=== PATIENT | female | born 1950 | race Native Hawaiian/Other Pacific Islander ===

== ENCOUNTER 2016-10-11 16:43 | Emergency (ER) | payer OTHER, BC ==
[~2016-10-11] VITALS: Ht 170.2 cm; Wt 114.8 kg
[2016-10-11] MEDS ORDERED: ELIQUIS2.5 MG OR (17:46)
[2016-10-11] MEDS ORDERED: METFTAB PO (17:47)
[2016-10-11] MEDS ORDERED: CARV12.5 PO (17:47)
[2016-10-11] MEDS ORDERED: GLIM4TAB PO (17:47)
[2016-10-11] MEDS ORDERED: XANAX XR1 MG OR (17:48)
[2016-10-11] MEDS ORDERED: VERA180T12 PO (17:48)
[2016-10-11] MEDS ORDERED: XARELTO20 MG OR (17:48)
[2016-10-11 17:51] LABS: PLATELET COUNT 368 K/uL (152-353)
[2016-10-11 18:04] LABS: POTASSIUM 4.4 mmol/L (3.6-5.2)
[2016-10-11 19:33] VITALS: BP 146/90; TEMP 98.3
== END 2016-10-11 19:40 | disposition home or self-care (01) ==
LOC: ED 16:43
DX: E11.65 Type 2 diabetes mellitus with hyperglycemia (principal); I48.91 Unspecified atrial fibrillation; I10 Essential (primary) hypertension; E66.8 Other obesity
CPT/HCPCS: 36415; 80053; 80307; 81000; 82550; 83036; 84484; 85027; 93005; 96374; 96375; 96376; 99284; G0479; J1815; J3490

== ENCOUNTER 2016-10-15 19:40 | Outpatient (CLI) | payer OTHER, BC ==
[~2016-10-15 19:40] MED LIST: CARV12.5 PO; ELIQUIS2.5 MG OR; GLIM4TAB PO; METFTAB PO; VERA180T12 PO; XANAX XR1 MG OR; XARELTO20 MG OR
== END 2016-10-15 19:47 | disposition short-term general hospital (02) ==
LOC: AMB 19:40
DX: E11.65 Type 2 diabetes mellitus with hyperglycemia (principal); R53.81 Other malaise; R41.82 Altered mental status, unspecified
CPT/HCPCS: A0425; A0427

== ENCOUNTER 2016-10-15 19:50 | Inpatient (IN) | payer OTHER, BC ==
[~2016-10-15] VITALS: Ht 170.2 cm; Wt 108.6 kg
[2016-10-15 19:59] VITALS: BP 163/85; TEMP 97.7
[2016-10-15 20:55] LABS: PLATELET COUNT 342 K/uL (152-353)
[2016-10-15 21:23] LABS: POTASSIUM 2.8 mmol/L (3.6-5.2)
[2016-10-16] VITALS (11 sets, daily range): BP systolic 130–153; BP diastolic 60–102; TEMP 97.7–98; Ht 170.2 cm; Wt 108.6 kg
[2016-10-16 12:08] LABS: PLATELET COUNT 236 K/uL (152-353)
[2016-10-16 13:10] LABS: POTASSIUM 2.7 mmol/L (3.6-5.2)
[2016-10-16 18:30] LABS: POTASSIUM 2.7 mmol/L (3.6-5.2)
[2016-10-17] VITALS (20 sets, daily range): BP systolic 86–148; BP diastolic 55–96; TEMP 97.7–98.2
[2016-10-17 02:43] LABS: PLATELET COUNT 224 K/uL (152-353)
[2016-10-17 02:48] LABS: POTASSIUM 2.9 mmol/L (3.6-5.2)
[2016-10-17 20:12] LABS: POTASSIUM 3.5 mmol/L (3.6-5.2)
[2016-10-18] VITALS (14 sets, daily range): BP systolic 87–133; BP diastolic 51–88; TEMP 97.7–98.3
[2016-10-18 06:51] LABS: PLATELET COUNT 179 K/uL (152-353)
[2016-10-18 06:53] LABS: POTASSIUM 3.6 mmol/L (3.6-5.2)
[2016-10-18] MEDS ORDERED: DIGOX125 MCG PO (07:37)
[2016-10-19] VITALS: BP 100/66; TEMP 97.8
[2016-10-19 04:00] VITALS: BP 121/88; TEMP 97.8
[2016-10-19 06:35] LABS: POTASSIUM 3.2 mmol/L (3.6-5.2)
[2016-10-19 06:48] LABS: PLATELET COUNT 178 K/uL (152-353)
[2016-10-19 08:00] VITALS: BP 119/61; TEMP 97.6
[2016-10-19 13:00] VITALS: BP 120/78; TEMP 98.4
== END 2016-10-19 13:45 | disposition home or self-care (01) | DRG 638 ==
LOC: ED 19:50 → MED/SURG 23:34 → ICU 10-16 17:17
PROVIDERS: Emergency Medicine; Internal Medicine; ADMIT Emergency Medicine
DX: E11.00 Type 2 diabetes mellitus with hyperosmolarity without nonketotic hyperglycemic-hyperosmolar coma (NKHHC) (principal); E87.1 Hypo-osmolality and hyponatremia; Z79.4 Long term (current) use of insulin; I48.91 Unspecified atrial fibrillation; E87.6 Hypokalemia; R53.1 Weakness; E83.42 Hypomagnesemia; I10 Essential (primary) hypertension; N28.9 Disorder of kidney and ureter, unspecified; R79.89 Other specified abnormal findings of blood chemistry; E11.42 Type 2 diabetes mellitus with diabetic polyneuropathy
CPT/HCPCS: 36415; 36600; 80048; 80053; 80162; 81000; 81002; 82140; 82550; 82570; 82805; 82948; 82962; 83605; 83735; 83880; 84132; 84300; 84443; 84484; 85027; 87045; 87077; 87088; 87205; 87328; 87329; 87493; 87798; 87899; 93005; 94760; 96361; 96365; 96372; 96375; 99285; J1160; J1644; J1815; J2405; J3475; J3480; J3490

== ENCOUNTER 2016-11-29 12:25 | Outpatient (CLI) | payer OTHER, BC ==
[~2016-11-29 12:25] MED LIST changes: +DIGOX125 MCG PO
== END 2016-11-29 19:48 | disposition home or self-care (01) ==
LOC: RAD 12:25
DX: M19.041 Primary osteoarthritis, right hand (principal); M19.042 Primary osteoarthritis, left hand; M17.0 Bilateral primary osteoarthritis of knee

== ENCOUNTER 2019-01-13 13:50 | Outpatient (CLI) | payer OTHER, BC ==
[2019-01-13 14:30] LABS: PLATELET COUNT 291 K/uL (152-353)
[2019-01-13 15:26] LABS: POTASSIUM 4.4 mmol/L (3.6-5.2)
== END 2019-01-13 19:23 | disposition home or self-care (01) ==
LOC: LABW 13:50
PROVIDERS: Podiatrist Foot & Ankle Surgery
DX: Z01.812 Encounter for preprocedural laboratory examination (principal); Z01.818 Encounter for other preprocedural examination; M10.9 Gout, unspecified; E11.9 Type 2 diabetes mellitus without complications; E55.9 Vitamin D deficiency, unspecified
CPT/HCPCS: 36415; 80053; 82306; 83036; 84550; 85027

== ENCOUNTER 2020-05-20 13:40 | Outpatient (CLI) | payer OTHER, BC | END 2020-05-20 19:05 | disposition home or self-care (01) | LOC: US 13:40 | DX: I73.89 Other specified peripheral vascular diseases (principal) ==

== ENCOUNTER 2021-07-24 21:30 | Emergency (ER) | payer BC, OTHER ==
[~2021-07-24] VITALS: Ht 188 cm; Wt 89.8 kg
[2021-07-24 21:30] VITALS: TEMP 100
[2021-07-24 22:27] LABS: PLATELET COUNT 387 K/uL (152-353)
[2021-07-24 22:40] LABS: POTASSIUM 3.4 mmol/L (3.6-5.2)
[2021-07-24 22:56] LABS: PARTIAL THROMBOPLASTIN TIME 28.8 SECONDS (24.5-33.6)
[2021-07-25 00:35] VITALS: BP 63/37
== END 2021-07-25 03:00 | disposition expired ==
LOC: ED 21:30
PROVIDERS: Emergency Medicine Emergency Medical Services
PROC: 0T9B70Z Drainage of Bladder with Drainage Device, Via Natural or Artificial Opening (ICD-10-PCS; principal; 2021-07-24)
PROC: 5A1221J Performance of Cardiac Output, Continuous, Automated (ICD-10-PCS; 2021-07-24)
PROC: 0BH17EZ Insertion of Endotracheal Airway into Trachea, Via Natural or Artificial Opening (ICD-10-PCS; 2021-07-24)
PROC: 5A1935Z Respiratory Ventilation, Less than 24 Consecutive Hours (ICD-10-PCS; 2021-07-24)
DX: I21.4 Non-ST elevation (NSTEMI) myocardial infarction (principal); R65.21 Severe sepsis with septic shock; Z20.822 Contact with and (suspected) exposure to COVID-19
CPT/HCPCS: 36415; 36600; 51702; 80053; 80162; 81002; 82805; 83605; 83735; 83880; 84484; 85027; 85610; 85730; 87040; 87635; 92950; 93005; 96360; 96365; 96366; 96375; 96376; 99285; J0171; J0330; J1644; J1815; J1953; J2250; J2270; J2405; J2543; J3490; U0003